=== PATIENT | female | born 1965 | race Caucasian/White ===

== ENCOUNTER 2016-04-28 12:19 | Observation (INO) | payer OTHER ==
[~2016-04-28] VITALS: Ht 154.9 cm; Wt 68.0 kg
[~2016-04-28 12:19] MED LIST: ASPI325T PO
[2016-04-28 12:24] VITALS: BP 132/83; PULSE 92; RESP 14; TEMP 98.5; O2SAT 98
--- NOTE | 2016-04-28 12:38 | PD ---
HPI Chief Complaint: Pain: Acute or Chronic Time Seen by Provider: 12:37 Travel History International Travel<30 days: No Contact w/Intl Traveler<30days: No Traveled to known affect area: No History of Present Illness HPI 50-year-old female with PMH of mitral valve prolapse, cardiogenic syncope, rheumatoid arthritis presents to the ED for evaluation a 2 day history of cramping left-sided posterior shoulder and neck pain. Patient states that the pain comes on suddenly, lasts approximately 1 minute before fading away. She states that the pain is accompanied by shortness of breath, diaphoresis and nausea. Last episode earlier this morning. Patient denies palpitations, chest pain, abdominal pain, dysuria. Patient has never smoked. Endorses strong family history of ME and sudden cardiac . Followed by Dr. Tellez. [facility] Past Medical History Hx Anticoagulant Therapy: Yes (ASPRIN) Arthritis: Yes Blood Disorders: No Heart Rhythm Problems: Yes Cancer: No Cardiovascular Problems: Yes (MVP) High Cholesterol: No Chemotherapy: No Chest Pain: Yes Congestive Heart Failure: No Cerebrovascular Accident: Yes Endocrine: No Gastrointestinal Disorders: No Genitourinary: No Hypertension: No Immune Disorder: Yes (Rheumatoid Arthritis, Poss Autoimmune Disorder) Implanted Vascular Access Dvce: No Musculoskeletal: Yes (Rheumatoid Arthritis) Neurologic: No Psychiatric: No Reproductive: No Respiratory: No Immunizations Current: Yes Myocardial Infarction: Yes Radiation Therapy: No ?: Not Past Surgical History Section: Yes Hysterectomy: Yes Tonsillectomy: Yes Other Surgery: Yes (5-6 Knee Sx, Hyster, Tonsillectomy, Breast Bx) Social History Alcohol Use: No Tobacco Use: No Substance Use: No Allergies-Medications (Allergen,Severity, Reaction): Coded Allergies: Penicillin (Verified Allergy, Severe, Anaphylaxis, 04/28/16) Vancomycin (Verified Allergy, Severe, Anaphylaxis, 04/28/16) Robitussin (Verified Allergy, Mild, HIVES, 04/28/16) Reported Meds & Prescriptions Reported Meds & Active Scripts Active No Active Prescriptions or Reported Medications Review of Systems Except as stated in HPI: all other systems reviewed are Neg Physical Exam Narrative GENERAL: Well-nourished, well-developed white female in no acute distress. SKIN: Warm and dry. No rashes noted. HEAD: Normocephalic. EYES: No scleral icterus. No injection or drainage. NECK: Supple, trachea midline. No JVD or lymphadenopathy. CARDIOVASCULAR: Regular rate and rhythm without murmurs, gallops, or rubs. 2+ DP and radial pulses bilaterally. RESPIRATORY: Breath sounds clear and equal bilaterally. No accessory muscle use. GASTROINTESTINAL: Abdomen soft, non-tender, nondistended. Active bowel sounds. MUSCULOSKELETAL: No cyanosis, or edema. Patient is observed to walk with a normal gait. BACK: Nontender without obvious deformity. No CVA tenderness. Data Data Last Documented VS Vital Signs Date Time Temp Pulse Resp B/P Pulse Ox O2 Delivery O2 Flow Rate FiO2 04/28/16 12:24 98.5 92 14 132/83 98 Orders Electrocardiogram (04/28/16 12:46) Basic Metabolic Panel (Bmp) (04/28/16 12:46) Ckmb (Isoenzyme) Profile (04/28/16 12:46) Complete Blood Count With Diff (04/28/16 12:46) Magnesium (Mg) (04/28/16 12:46) Prothrombin Time / Inr (Pt) (04/28/16 12:46) Act Partial Throm Time (Ptt) (04/28/16 12:46) Troponin I (04/28/16 12:46) Chest, Single Ap (04/28/16 12:46) Aspirin Chew (Aspirin Chew) (04/28/16 13:00) Sodium Chloride 0.9% Flush (Ns Flush) (04/28/16 13:00) Admit Order (Ed Use Only) (04/28/16 14:01) Labs Laboratory Tests Test 04/28/16 12:50 White Blood Count 3.3 TH/MM3 Red Blood Count 5.03 MIL/MM3 Hemoglobin 14.8 GM/DL Hematocrit 43.5 % Mean Corpuscular Volume 86.6 FL Mean Corpuscular Hemoglobin 29.5 PG Mean Corpuscular Hemoglobin 34.0 % Concent Red Cell Distribution Width 11.9 % Platelet Count 163 TH/MM3 Mean Platelet Volume 7.7 FL Neutrophils (%) (Auto) 60.7 % Lymphocytes (%) (Auto) 27.2 % Monocytes (%) (Auto) 10.6 % Eosinophils (%) (Auto) 0.9 % Basophils (%) (Auto) 0.6 % Neutrophils # (Auto) 2.0 TH/MM3 Lymphocytes # (Auto) 0.9 TH/MM3 Monocytes # (Auto) 0.3 TH/MM3 Eosinophils # (Auto) 0.0 TH/MM3 Basophils # (Auto) 0.0 TH/MM3 CBC Comment DIFF FINAL Differential Comment Prothrombin Time 11.2 SEC Prothromb Time International 1.0 RATIO Ratio Activated Partial 27.5 SEC Thromboplast Time Sodium Level 138 MEQ/L Potassium Level 3.2 MEQ/L Chloride Level 104 MEQ/L Carbon Dioxide Level 23.4 MEQ/L Anion Gap 11 MEQ/L Blood Urea Nitrogen 10 MG/DL Creatinine 0.89 MG/DL Estimat Glomerular Filtration 67 ML/MIN Rate Random Glucose 94 MG/DL Calcium Level 8.0 MG/DL Magnesium Level 2.3 MG/DL Total Creatine Kinase 62 U/L Troponin I LESS THAN 0.02 NG/ML MDM Medical Decision Making Medical Screen Exam Complete: Yes Emergency Medical Condition: Yes Interpretation(s) EKG rate 85, sinus rhythm. ID interval 156, QRS, 70 ms, QTc 386. No acute ischemic changes. Reviewed by Dr. Quintanilla. Similar to previous EKG 11/10/13. Differential Diagnosis Atypical chest pain versus muscle spasm versus GERD versus ACS versus other Narrative Course 50-year-old female with PMH of mitral valve prolapse, cardiogenic syncope, rheumatoid arthritis presents to the ED for evaluation a 2 day history of cramping left-sided posterior shoulder and neck pain. Patient states that the pain comes on suddenly, lasts approximately 1 minute before fading away. Pain is accompanied by shortness of breath, diaphoresis and nausea. Last episode earlier this morning. Patient denies palpitations, chest pain, abdominal pain, dysuria. Patient has never smoked. Endorses strong family history of ME and sudden cardiac . Followed by Dr. Tellez. Vitals reviewed. Physical exam reveals a nontoxic appearing white female in no acute distress. No rashes or tenderness to palpation over the left posterior neck and shoulder. Remaining physical exam is otherwise unremarkable. CBC: addresses or anemia. INR 1.0. Chemistry potassium 3.2. Calcium 8.0. Cardiac enzymes negative CXR: No acute disease EKG as above. Given the patient's increased risks as well as atypical chest pain, but her chest pain center for further evaluation. Please see chest pain center notes for disposition. Diagnosis Primary Impression: Atypical chest pain Scripts No Active Prescriptions or Reported Meds Chelsie Diez Apr 28, 2016 12:38
[2016-04-28] MEDS ORDERED: ASPIRIN 81 MG CHEW TAB PO ONE (13:00)
[2016-04-28] MEDS ORDERED: SODIUM CHLORIDE 0.9% FLUSH 5 ML FLUSH IVF PRN (13:00)
[2016-04-28 13:04] LABS: BASOPHIL % 0.6 % (0.0-2.0); EOSINOPHIL % 0.9 % (0.0-4.0); HEMATOCRIT 43.5 % (35.0-46.0); HEMO FLAGS DIFF FINAL; LYMPH % 27.2 % (9.0-44.0); LYMPHOCYTE # 0.9 TH/MM3 (1.0-4.8); MEAN CELL VOLUME 86.6 FL (80.0-100.0); MEAN CORPUSCULAR HEMOGLOBIN 29.5 PG (27.0-34.0); MONO % 10.6 % (0.0-8.0); NEUT % 60.7 % (16.0-70.0); PLATELET COUNT 163 TH/MM3 (150-450); RED BLOOD COUNT 5.03 MIL/MM3 (4.00-5.30); RED CELL DISTRIBUTION WIDTH 11.9 % (11.6-17.2); WHITE BLOOD COUNT 3.3 TH/MM3 (4.0-11.0)
[2016-04-28 13:16] LABS: CHLORIDE 104 MEQ/L (98-107); POTASSIUM 3.2 MEQ/L (3.5-5.1); SODIUM (NA) 138 MEQ/L (136-145)
[2016-04-28 13:19] LABS: ANION GAP 11 MEQ/L (5-15); BICARBONATE 23.4 MEQ/L (21.0-32.0); MAGNESIUM 2.3 MG/DL (1.5-2.5)
[2016-04-28 13:20] LABS: BLOOD UREA NITROGEN 10 MG/DL (7-18)
[2016-04-28 13:23] LABS: APTT (PATIENT) 27.5 SEC (24.3-30.1); GLOMERULAR FILTRATION RATE 67 ML/MIN (>89); PROTHROMBIN TIME - PATIENT 11.2 SEC (9.8-11.6)
[2016-04-28 13:33] LABS: CREATINE KINASE 62 U/L (26-192)
--- NOTE | 2016-04-28 13:37 | RADHPO ---
EXAM DATE/TIME: 04/28/2016 12:50 [facility] COMPARISON: No previous studies available for comparison. INDICATIONS : Chest pain off and on for two days. MEDICAL HISTORY : Mitral valve prolapse. SURGICAL HISTORY : None. ENCOUNTER: Initial ACUITY: 2 days PAIN SCORE: 9/10 LOCATION: posterior chest. FINDINGS: A single view of the chest demonstrates the lungs to be symmetrically aerated without evidence of mas s, infiltrate or effusion. The cardiomediastinal contours are unremarkable. Osseous structures are intact. CONCLUSION: No acute disease. Kali Jason MD on April 28, 2016 at 13:35 Board Certified Radiologist. This report was verified electronically.
[2016-04-28] MEDS ORDERED: CYCL1TAB29 PO (14:39)
--- NOTE | 2016-04-28 14:40 | HHI.DCPOC ---
Discharge Care Plan Diagnosis: (1) Atypical chest pain Goals to Promote Your Health * To prevent worsening of your condition and complications * To maintain your health at the optimal level Directions to Meet Your Goals Take your medications as prescribed Follow your dietary instruction Follow activity as directed Keep your appointments as scheduled Take your immunizations and boosters as scheduled If your symptoms worsen call your PCP, if no PCP go to Urgent Care Center or Emergency Room Smoking is Dangerous to Your Health. Avoid second hand smoke Call the 24-hour hour crisis hotline for domestic abuse at Lynne Arteaga MD Apr 28, 2016 14:40
[2016-04-28] MEDS ORDERED: SODIUM CHLOR 0.9% 1000 ML INJ 1,000 ML IV ONE (14:45)
--- NOTE | 2016-04-28 14:52 | PD.CONS ---
[facility] Requested By er MD Quintanilla Reason for Consult atypical CP Primary Care Physician Scott Urena MD Diagnoses: History of Present Illness Patient is a 50-year-old female who is evaluated in the emergency room at the request of the ER physician due to atypical left scapular discomfort which has been intermittent for the last 3 days. Patient notes no aggravating or relieving factors for this vague discomfort. It is associated with sweating and nausea. She has not eaten in the last 2 days which is unusual because normally she has a very good appetite. The nausea has not caused any vomiting. Patient has reported increasing psychosocial stressors and fatigue symptoms. In the emergency room her EKG initially is normal and her troponin is normal. Patient does have a history of mitral valve prolapse and rheumatic fever as child. She is under the care of her venetian blind tape cutter who has outpatient cardiac stress testing pending. Previous evaluations have been nonspecific per patient' s history. At this time patient denies any discomfort. She was driving today and felt the discomfort and therefore came to the emergency room however the discomfort went away spontaneously. At this point patient is very comfortable without any complaints. I did speak with the patient regarding any recent trauma musculoskeletal with which she denies. The pain is not reproducible. Patient would like to follow-up with her primary venetian blind tape cutter to continue medical evaluation of this atypical chest discomfort Review of Systems Constitutional: COMPLAINS OF: Diaphoretic episodes, Change in appetite Endocrine: DENIES: Abnorml menstrual pattern, Heat/cold intolerance, Polydipsia , Polyuria, Polyphagia Eyes: DENIES: Blurred vision, Diplopia, Eye inflammation, Eye pain, Vision loss , Photosensitivity, Double Vision Ears, nose, mouth, throat: DENIES: Tinnitus, Hearing loss, Vertigo, Nasal discharge, Oral lesions, Throat pain, Hoarseness, Ear Pain, Running Nose, Epistaxis, Sinus Pain, Toothache, Odynophagia Respiratory: DENIES: Apneas, Cough, Snoring, Wheezing, Hemoptysis, Sputum production, Shortness of breath Cardiovascular: DENIES: Chest pain, Palpitations, Syncope, Dyspnea on Exertion , PND, Lower Extremity Edema, Orthopnea, Claudication Gastrointestinal: DENIES: Abdominal pain, Black stools, Bloody stools, Constipation, Diarrhea, Nausea, Vomiting, Difficulty Swallowing, Anorexia Genitourinary: DENIES: Abnormal vaginal bleeding, Dysmenorrhea, Dyspareunia, Sexual dysfunction, Urinary frequency, Urinary incontinence, Urgency, Hematuria , Dysuria, Nocturia, Vaginal discharge Musculoskeletal: DENIES: Joint pain, Muscle aches, Stiffness, Joint Swelling, Back pain, Neck pain Integumentary: DENIES: Abnormal pigmentation, Pruritus, Rash, Nail changes, Breast masses, Breast skin changes, Nipple discharge Hematologic/lymphatic: DENIES: Bruising, Lymphadenopathy Immunologic/allergic: DENIES: Eczema, Urticaria Neurologic: DENIES: Abnormal gait, Headache, Localized weakness, Paresthesias, Seizures, Speech Problems, Tremor, Poor Balance Psychiatric: DENIES: Anxiety, Confusion, Mood changes, Depression, Hallucinations, Agitation, Suicidal Ideation, Homicidal Ideation, Delusions Past Family Social History Allergies: Coded Allergies: Penicillin (Verified Allergy, Severe, Anaphylaxis, 04/28/16) Vancomycin (Verified Allergy, Severe, Anaphylaxis, 04/28/16) Robitussin (Verified Allergy, Mild, HIVES, 04/28/16) Past Medical History Mitral valve prolapse Rheumatic fever TIA (patient denies) Past Surgical History Hysterectomy Tonsillectomy Left knee surgery 6 Reported Medications No home medications Active Ordered Medications Medications reviewed in the medical record Family History Brother had a ruptured vascular issue and Mother is healthy Social History No tobacco, occasional alcohol, unemployed no illicit drug use No recent travel Physical Exam Vital Signs Vital Signs Date Time Temp Pulse Resp B/P Pulse Ox O2 Delivery O2 Flow Rate FiO2 04/28/16 12:24 98.5 92 14 132/83 98 Physical Exam GENERAL: This is a well-nourished, well-developed patient, in no apparent distress. SKIN: No rashes, ecchymoses or lesions. Cool and dry. HEAD: Atraumatic. Normocephalic. No temporal or scalp tenderness. EYES: Pupils equal round and reactive. Extraocular motions intact. No scleral icterus. No injection or drainage. ENT: Nose without bleeding, purulent drainage or septal hematoma. Throat without erythema, tonsillar hypertrophy or exudate. Uvula midline. Airway patent. NECK: Trachea midline. No JVD or lymphadenopathy. Supple, nontender, no meningeal signs. CARDIOVASCULAR: Regular rate and rhythm without murmurs, gallops, or rubs. RESPIRATORY: Clear to auscultation. Breath sounds equal bilaterally. No wheezes , rales, or rhonchi. GASTROINTESTINAL: Abdomen soft, non-tender, nondistended. No hepato-splenomegaly , or palpable masses. No guarding. MUSCULOSKELETAL: Extremities without clubbing, cyanosis, or edema. No joint tenderness, effusion, or edema noted. No calf tenderness. Negative Homans sign bilaterally. NEUROLOGICAL: Awake and alert. Cranial nerves II through XII intact. Motor and sensory grossly within normal limits. Five out of 5 muscle strength in all muscle groups. Normal speech. Laboratory Laboratory Tests Test 04/28/16 12:50 White Blood Count 3.3 Red Blood Count 5.03 Hemoglobin 14.8 Hematocrit 43.5 Mean Corpuscular Volume 86.6 Mean Corpuscular Hemoglobin 29.5 Mean Corpuscular Hemoglobin 34.0 Concent Red Cell Distribution Width 11.9 Platelet Count 163 Mean Platelet Volume 7.7 Neutrophils (%) (Auto) 60.7 Lymphocytes (%) (Auto) 27.2 Monocytes (%) (Auto) 10.6 Eosinophils (%) (Auto) 0.9 Basophils (%) (Auto) 0.6 Neutrophils # (Auto) 2.0 Lymphocytes # (Auto) 0.9 Monocytes # (Auto) 0.3 Eosinophils # (Auto) 0.0 Basophils # (Auto) 0.0 CBC Comment DIFF FINAL Differential Comment Prothrombin Time 11.2 Prothromb Time International 1.0 Ratio Activated Partial 27.5 Thromboplast Time Sodium Level 138 Potassium Level 3.2 Chloride Level 104 Carbon Dioxide Level 23.4 Anion Gap 11 Blood Urea Nitrogen 10 Creatinine 0.89 Estimat Glomerular Filtration 67 Rate Random Glucose 94 Calcium Level 8.0 Magnesium Level 2.3 Total Creatine Kinase 62 Troponin I LESS THAN 0.02 Result Diagram: 04/28/16 1250 04/28/16 1250 Imaging GENERAL: This is a well-nourished, well-developed patient, in no apparent distress. CARDIOVASCULAR: Regular rate and rhythm without murmurs, gallops, or rubs. RESPIRATORY: Clear to auscultation. Breath sounds equal bilaterally. No wheezes , rales, or rhonchi. GASTROINTESTINAL: Abdomen soft, non-tender, nondistended. Normal active bowel sounds MUSCULOSKELETAL: Extremities without clubbing, cyanosis, or edema. NEURO: Alert & Oriented x4 to person, place, time, situation. Moves all ext x4 Assessment and Plan Problem List: (1) Atypical chest pain ICD Code: R07.89 Status: Acute Plan: Likely musculoskeletal Patient's leukopenia and monocytosis may be related to viral syndrome Will continue with outpatient plans for stress testing per her [employer]ian blind tape cutter Continue IV fluids Flexeril as needed for discomfort (2) Hypokalemia ICD Code: E87.6 Status: Acute Plan: replace Assessment and Plan Discharge home Activity unrestricted Diet regular Lynne Arteaga MD Apr 28, 2016 14:52
[2016-04-28] MEDS ORDERED: POTASSIUM CHLORIDE 10 MEQ CONTROLLED RELEASE TAB PO ONE (15:00)
[2016-04-28 16:05] VITALS: BP 106/63; PULSE 89; RESP 16; O2SAT 99
--- NOTE | 2016-04-30 07:17 | EKG ---
Date Performed: 04/28/2016 Time Performed: 12:54:28 PTAGE: 50 years EKG: Sinus rhythm Generalized low voltage Poor R-wave progression, cannot exclude anteroseptal myocardial infarction o f undetermined age vs normal variant Abnormal ECG Compared to PREVIOUS TRACING , no significant change is noted. PREVIOUS TRACIN11/10/2013 12.15 DOCTOR: Nba Trottre Interpretating Date/Time 04/30/2016 07:16:47
== END 2016-04-28 16:26 | disposition home or self-care (01) ==
LOC: PHEFT 12:19 → PHEDA 14:03
PROVIDERS: ADMIT Hospitalist; ATTEND Hospitalist
DX: R07.89 Other chest pain (principal); E87.6 Hypokalemia; I34.1 Nonrheumatic mitral (valve) prolapse; M06.9 Rheumatoid arthritis, unspecified; Z82.49 Family history of ischemic heart disease and other diseases of the circulatory system; Z86.73 Personal history of transient ischemic attack (TIA), and cerebral infarction without residual deficits; Z79.82 Long term (current) use of aspirin
CPT/HCPCS: 71010; 80048; 82550; 83735; 84443; 84484; 85025; 85610; 85730; 93005; 99285; G0378; J7030

== ENCOUNTER → 2016-07-12 | Day surgery (SDC) | payer OTHER ==
[~2016-07-12] MED LIST changes: -ASPI325T PO; +BUPIVACAINE/EPINEPHRINE 0.25% 50 ML VIAL ONE; +CLINDAMYCIN PHOS 600 MG/4 ML VIAL ONE; +CYCL1TAB29 PO; +KETOROLAC TROMETHAMINE 30 MG/ML (IVP) VIAL IV PUSH ONE; +LACTATED RINGER'S 1000 ML INJ 1,000 ML ONE; +MEPERIDINE HCL 50 MG/ML VIAL ONE; +MIDAZOLAM HCL 2 MG/2 ML VIAL ONE; +ONDANSETRON HCL 4 MG/2 ML VIAL IV PUSH ONE; +PROPOFOL 200 MG/20 ML AMP IV ONE; +SODIUM CHLORIDE 0.9% 100 ML MINIBAG IV ONE; +TRIAMCINOLONE ACETONIDE 40 MG/ML VIAL ONE; +oxyCODONE/ACETAMINOPHEN 5 MG/325 MG TAB ONE
--- NOTE | 2016-07-12 12:33 | TN ---
cc: ALYSSA KAT M.D. DATE OF SURGERY 07/12/2016 PREOPERATIVE DIAGNOSIS Left knee pain and mechanical symptoms without clear evidence of internal derangement on MRI. POSTOPERATIVE DIAGNOSES 1. 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 2. Previous anterior cruciate ligament reconstruction with significant stretch injury and partial rupture. 3. Partial detachment medical meniscus from medial tibial palteau. PROCEDURE PERFORMED 1. Left knee arthroscopy with chondroplasty of the patella, medial femoral condyle and lateral tibial plateau. 2. Left knee augmentation anterior cruciate ligament with thermal treatment. 3. Abrasion/decorication medial tibial plateau under area of meniscal detachment SURGEON [facility] [place] AN[facility]HES[facility] General via laryngeal mask augmented by local infiltration. BLOOD LOSS Minimal. FLUID REPLACEMENT 500 cc crystalloid. TOURNIQUET TIME 30 minutes at 300 mmHg. COMPLICATIONS There were no intraoperative complications. COUNTS All counts were correct. IMPLANTS There were no implants utilized. INDICATIONS FOR THE PROCEDURE Mrs. Higgins is a 50-year-old woman who has undergone multiple left knee procedures in the past, the most recent of which a little over a year ago, which failed to provide her with significant improvement of her symptoms. She reports that she has continued to experience problems with mechanical-like symptoms as well as the sensation of mal-tracking and continues to have a great deal of episodic severe pain of the knee. She also had a very distinct sensation of feeling unstable somewhat similar to how she felt when her ACL was originally injured. Post-arthroscopy MRI of the knee did not clearly delineate any obvious intra-articular pathology other than some mild arthritis. As a result of her quite persistent symptoms and further evaluation by myself and second surgical opinion by Dr. Cope, we went ahead and decided to do a diagnostic knee arthroscopy to see if there was anything further found in the knee to account for her ongoing symptoms. She was aware of the risks of the procedure including bleeding, infection, thromboembolic complications, lack of relief, worsening of her pain and that it was unclear what we would find and it may even be unclear what would be necessary to be done, but she consented to do whatever was necessary in order to improve her discomfort. DESCRIPTION OF PROCEDURE After the patient properly identified in the holding area, she correctly marked her left knee for surgery and I had initialed it as well. She was given 600 mg of clindamycin as prophylactic antibiotic due to her PENICILLIN ALLERGY and then she was placed under general laryngeal mask anesthetic by Dr. Schultz. I went ahead and applied a well-padded thigh-high tourniquet to the left knee and then we prepped her and draped her with alcohol and Hibiclens from the toes all the way up to the level of the tourniquet. She was then draped in the normal standard fashion including the use of impervious stockinette from the foot to the midcalf level. At this time a brief time-out was held confirming the left leg was the appropriate surgical site. The team was in agreement and the case was now begun. Standard anteromedial and anterolateral joint line portals were established after the leg was exsanguinated and the tourniquet was raised to 300 mmHg. A small effusion was evacuated, in-flow was initiated and a survey of the joint was as follows: The suprapatellar pouch showed no evidence of any loose bodies or significant synovitis. The patellofemoral joint did show a central hinged area of chondromalacia that was quite thick, almost the level of Grade III-A that appeared to be hinged on the undersurface of the patella. This could have been a very classic chondral lesion responsible for intermittent mechanical symptoms in the knee that may not necessarily be easily identifiable on MRI. It certainly may account for the sensation of instability and mechanical symptoms that were more experienced anterior. I went ahead and performed a chondroplasty of the patella to eliminate the hinged, unstable fragments and there was not bare exposed bone deep to it. There was no evidence of any significant pathology on the corresponding trochlear groove side. At this time the medial gutter was explored. No loose bodies were identified. I went ahead and now entered the medial compartment. There was some diffuse Grade II-A and II-B chondromalacia of the medial femoral condyle which was gently debrided with an oscillating shaver and there were quite minimal changes on the tibial side. The meniscus did show evidence of previous partial meniscectomy, but no evidence of any new acute tear was identified. The only pathology that was present, other than the underlying chondral thinning, was very subtle detachment of the anteromedial corner of the meniscus from the tibial plateau. There was somewhat of a variation of how well adherent the edge of the meniscus as to the proximal tibia but in this case it did appear to be slightly looser at least in this one segment. No corresponding large displaced new anterior horn tear was seen nor was there any evidence of significant midbody or posterior horn tear. Prior partial meniscectomy did not make it so that the meniscal rim was significantly smaller posteriorly. The meniscus rim was fully probed and was intact and was stable, would not sublux into the joint. I elected to perform a limited abrasion/ decortication with the shaver at this site to encourage reattachment . The intercondylar notch was now explored. There was evidence of her previous ACL reconstruction but it appeared to be even further attenuated and more thinned out than had ever been noticed previously. There was a 2+ anterior drawer at least, perhaps even a higher level of laxity which was difficult to measure due to the actual measurement of it intraoperatively. I went ahead and took a video at this point in time to demonstrate the degree of laxity and there was clearly more significant anterior translation than would have been anticipated following a successful ACL reconstruction previously. At this time I went ahead and debrided some of the hypertrophic synovial tissue that was actually impinging into the notch area and will return to the ACL issue further in the operative report. At this time the lateral compartment was now entered. There was evidence of Grade II-B chondromalacia of the lateral tibial plateau to which gentle chondroplasty was performed with a shaver. Minimal changes were noted on the femoral side. The lateral meniscus did show some evidence of previous partial lateral meniscectomy, but no evidence of new acute tears appreciated and I fully probed the lateral meniscus and it would not sublux into the joint at all. The lateral gutter was explored. No loose bodies were identified. At this time the intercondylar notch was re-explored one further time. I felt that, based upon her increased translational displacement from laxity of her ACL, that it was in her best interest and she would certainly be interested in anything being done possible to help improve her symptoms by performing a thermal shrinkage to her previous ACL reconstruction. I went ahead and used to the ArthroCare wand on a #2 setting under coag and this produced no obvious tissue destruction but as soon as the probe was applied, immediate shrinking of the soft tissues were appreciated immediately. The graft after being treated 10-15 times became much more tubular as well as rigid. A secondary video was obtained which showed significant improvement of her anterior-posterior stability following the treatment. Whether or not this is effective for long-term use remains the ultimate question in the thermal shrinkage literature but clincally it was dramatically more stable and very effectively augmented her ACL function back to near normal. We will follow this closely post op. At this time the knee was thoroughly irrigated and suctioned decompressed several times. I inspected all compartments one time further and found no other new pathology than had been identified previously. The instruments were removed. After the knee was then suctioned decompressed, the portals were closed with 3-0 nylon simple sutures and then 30 cc of 0.25% Marcaine with epinephrine then infiltrated subcutaneously as well as intraarticularly for postop pain relief. The wounds were then dressed with Xeroform, 4x4s, ABD and an Phani wrap. The tourniquet was let down. There was brisk return of capillary refill. She was then awoken from anesthesia and taken to Recovery in stable condition. Appropriate postoperative orders have been written. Alyssa Kat MD Electronically Signed MD DEV Garcia/ANKUR /11:18 AM /12:05 PM MTDD
== END | disposition home or self-care (01) ==
LOC: ESDC 08:31
PROVIDERS: ATTEND Orthopaedic Surgery Sports Medicine
DX: M22.42 Chondromalacia patellae, left knee (principal); S83.512A Sprain of anterior cruciate ligament of left knee, initial encounter
CPT/HCPCS: 01400; 29877; 29999; J1885; J2250; J2405; J3010; J7120; J2175; J3301

== ENCOUNTER 2017-08-01 02:02 | Emergency (ER) | payer OTHER ==
[~2017-08-01] VITALS: Ht 162.6 cm; Wt 75.0 kg
[~2017-08-01 02:02] MED LIST changes: -BUPIVACAINE/EPINEPHRINE 0.25% 50 ML VIAL ONE; -CLINDAMYCIN PHOS 600 MG/4 ML VIAL ONE; +CYCL10TA PO; -CYCL1TAB29 PO; -KETOROLAC TROMETHAMINE 30 MG/ML (IVP) VIAL IV PUSH ONE; -LACTATED RINGER'S 1000 ML INJ 1,000 ML ONE; -MEPERIDINE HCL 50 MG/ML VIAL ONE; -MIDAZOLAM HCL 2 MG/2 ML VIAL ONE; -ONDANSETRON HCL 4 MG/2 ML VIAL IV PUSH ONE; -PROPOFOL 200 MG/20 ML AMP IV ONE; -SODIUM CHLORIDE 0.9% 100 ML MINIBAG IV ONE; -TRIAMCINOLONE ACETONIDE 40 MG/ML VIAL ONE; -oxyCODONE/ACETAMINOPHEN 5 MG/325 MG TAB ONE
[2017-08-01 02:06] VITALS: BP 143/83; PULSE 104; RESP 20; TEMP 99.5
[2017-08-01] MEDS ORDERED: NITR1SUB3 SL (02:19)
[2017-08-01] MEDS ORDERED: ASPI81CH6 CHEW (02:19)
[2017-08-01 02:30] VITALS: BP 136/70; PULSE 98; RESP 18; O2SAT 100
[2017-08-01 02:42] LABS: BASOPHIL # 0.1 TH/MM3 (0-0.2); BASOPHIL % 0.9 % (0.0-2.0); EOSINOPHIL % 0.4 % (0.0-4.0); HEMATOCRIT 39.8 % (35.0-46.0); HEMOGLOBIN 13.6 GM/DL (11.6-15.3); LYMPH % 15.3 % (9.0-44.0); LYMPHOCYTE # 1.4 TH/MM3 (1.0-4.8); MEAN CELL VOLUME 86.9 FL (80.0-100.0); MEAN CORPUSCULAR HEMOGLOBIN 29.8 PG (27.0-34.0); MEAN CORPUSCULAR HGB CONC 34.3 % (32.0-36.0); MEAN PLATELET VOLUME 8.5 FL (7.0-11.0); MONO % 7.7 % (0.0-8.0); MONOCYTE # 0.7 TH/MM3 (0-0.9); NEUT % 75.7 % (16.0-70.0); PLATELET COUNT 252 TH/MM3 (150-450); RED BLOOD COUNT 4.58 MIL/MM3 (4.00-5.30); RED CELL DISTRIBUTION WIDTH 12.3 % (11.6-17.2); WHITE BLOOD COUNT 9.2 TH/MM3 (4.0-11.0)
[2017-08-01] MEDS ORDERED: SODIUM CHLOR 0.9% 1000 ML INJ 1,000 ML IV SCH (02:50)
--- NOTE | 2017-08-01 02:54 | RADRPT ---
EXAM DATE: 08/01/2017 2:45 AM EDT AGE/SEX: 51 years / Female INDICATIONS: Right sided chest pain for 24 hours CLINICAL DATA: This is the patient's initial encounter. Patient reports that signs and symptoms have been present for 1 day and indicates a pain score of 10/10. MEDICAL/SURGICAL HISTORY: . Mitral valve prolapse. None. COMPARISON: [facility], CHEST SINGLE AP, 04/28/2016. . FINDINGS: Single AP view the chest. Lung volumes are low. Mild right lower lung zone opacity may represent atel ectasis or early consolidation. No evidence of pleural effusion or pneumothorax. Cardiomediastinal si lhouette within normal limits. CONCLUSION: Low lung volumes with patchy right lung base opacity. Electronically signed by: Dread Greene MD 08/01/2017 2:53 AM EDT
[2017-08-01 02:55] LABS: CHLORIDE 106 MEQ/L (98-107); SODIUM (NA) 141 MEQ/L (136-145)
--- NOTE | 2017-08-01 02:56 | PD ---
HPI Chief Complaint: Pain: Acute or Chronic Time Seen by Provider: 02:50 Travel History International Travel<30 days: No Contact w/Intl Traveler<30days: No Traveled to known affect area: No History of Present Illness HPI The patient is a 51-year-old female that Saturday morning began feeling a tightness around where her bra is in the back. The pain vacillated wavering up from a 2/10 to a 9/10. She has never had this problem before. The pain goes from the back down to her legs in the back. She states she is not having any chest pain or shortness of breath or cough or fever. She does have occasional nausea. She denies any abdominal pain. She does not smoke. She states for the past 3 days she has had sweating and feeling like she is going through the menopause. PFSH Past Medical History Hx Anticoagulant Therapy: Yes (ASPRIN) Arthritis: Yes Autoimmune Disease: Yes (RHEUMATIC FEVER) Blood Disorders: No Heart Rhythm Problems: Yes Cancer: No Cardiovascular Problems: Yes (EKG ABNORMALITIES, NH, TACHYCARDIA, MVP/TVP) High Cholesterol: No Chemotherapy: No Chest Pain: Yes Congestive Heart Failure: No Cerebrovascular Accident: Yes Patient Takes Glucophage: No Endocrine: No Gastrointestinal Disorders: No Genitourinary: No Hypertension: No Immune Disorder: Yes (RHEUMATIC FEVER, Poss Autoimmune Disorder) Implanted Vascular Access Dvce: No Musculoskeletal: Yes (Rheumatoid Arthritis) Neurologic: No Psychiatric: No Reproductive: No Respiratory: No Immunizations Current: Yes Myocardial Infarction: Yes Radiation Therapy: No Tetanus Vaccination: Unknown Influenza Vaccination: No ?: Not Past Surgical History Section: Yes Gynecologic Surgery: Yes Hysterectomy: Yes Tonsillectomy: Yes Other Surgery: Yes (5-6 Knee Sx, Hyster, Tonsillectomy, Breast Bx) Social History Alcohol Use: No Tobacco Use: No Substance Use: No Allergies-Medications (Allergen,Severity, Reaction): Coded Allergies: penicillin G (Unverified Allergy, Severe, Anaphylaxis, 10/02/16) vancomycin (Unverified Allergy, Severe, Anaphylaxis, 10/02/16) guaifenesin (Unverified Allergy, Mild, HIVES, 10/02/16) Reported Meds & Prescriptions Reported Meds & Active Scripts Active Zithromax (Azithromycin) 500 Mg Tab 500 Mg PO DAILY 5 Days Reported Nitroglycerin SL (Nitroglycerin) 0.4 Mg Subl 0.4 Mg SL DIRECTED PRN ONE TABLET UNDER THE TONGUE NEEDED FOR CHEST PAIN, MAY REPEAT EVERY FIVE MINUTES FOR A TOTAL OF 3 DOSES OR CALL 911 IF NO RELIEF Aspirin Low Dose (Aspirin) 81 Mg Chew 81 Mg CHEW DAILY Review of Systems Except as stated in HPI: all other systems reviewed are Neg Physical Exam Narrative GENERAL: The patient is alert, oriented 3 in moderate to severe distress with her back pain. Her vital signs show temperature 99.5 with blood pressure 123/ 83 and heart rate 104. SKIN: Focused skin assessment warm/dry. HEAD: Atraumatic. Normocephalic. EYES: Pupils equal and round. No scleral icterus. No injection or drainage. ENT: No nasal bleeding or discharge. Mucous membranes pink and moist. NECK: Trachea midline. No JVD. CARDIOVASCULAR: Regular rate and rhythm. No murmur appreciated. RESPIRATORY: No accessory muscle use. Clear to auscultation. Breath sounds equal bilaterally. GASTROINTESTINAL: Abdomen soft, non-tender, nondistended. Hepatic and splenic margins not palpable. MUSCULOSKELETAL: No obvious deformities. No clubbing. No cyanosis. No edema. I cannot reproduce the patient's pain by pressing on the back where she perceives her pain. NEUROLOGICAL: Awake and alert. No obvious cranial nerve deficits. Motor grossly within normal limits. Normal speech. PSYCHIATRIC: Appropriate mood and affect; insight and judgment normal. Data Data Last Documented VS Vital Signs Date Time Temp Pulse Resp B/P (MAP) Pulse Ox O2 Delivery O2 Flow Rate FiO2 08/01/17 03:18 90 18 111/77 (88) 98 Room Air 08/01/17 02:06 99.5 Orders Orders Electrocardiogram (08/01/17 02:24) Complete Blood Count With Diff (08/01/17 02:24) Basic Metabolic Panel (Bmp) (08/01/17 02:24) Ckmb (Isoenzyme) Profile (08/01/17 02:24) Troponin I (08/01/17 02:24) Chest, Single Ap (08/01/17 02:24) Iv Access Insert/Monitor (08/01/17 02:24) Ecg Monitoring (08/01/17 02:24) Oxygen Administration (08/01/17 02:24) Oximetry (08/01/17 02:24) Comprehensive Metabolic Panel (08/01/17 02:50) Urinalysis - C+S If Indicated (08/01/17 02:50) Morphine Inj (Morphine Inj) (08/01/17 03:00) Ondansetron Inj (Zofran Inj) (08/01/17 03:00) Sodium Chlor 0.9% 1000 Ml Inj (Ns 1000 M (08/01/17 02:50) Sodium Chloride 0.9% Flush (Ns Flush) (08/01/17 03:00) Electrocardiogram (08/01/17 02:50) Ketorolac Inj (Toradol Inj) (08/01/17 03:00) Orphenadrine Inj (Norflex Inj) (08/01/17 03:00) Azithromycin (Zithromax) (08/01/17 04:00) Labs Laboratory Tests Test 08/01/17 02:20 08/01/17 03:21 White Blood Count 9.2 TH/MM3 Red Blood Count 4.58 MIL/MM3 Hemoglobin 13.6 GM/DL Hematocrit 39.8 % Mean Corpuscular Volume 86.9 FL Mean Corpuscular Hemoglobin 29.8 PG Mean Corpuscular Hemoglobin Concent 34.3 % Red Cell Distribution Width 12.3 % Platelet Count 252 TH/MM3 Mean Platelet Volume 8.5 FL Neutrophils (%) (Auto) 75.7 % Lymphocytes (%) (Auto) 15.3 % Monocytes (%) (Auto) 7.7 % Eosinophils (%) (Auto) 0.4 % Basophils (%) (Auto) 0.9 % Neutrophils # (Auto) 7.0 TH/MM3 Lymphocytes # (Auto) 1.4 TH/MM3 Monocytes # (Auto) 0.7 TH/MM3 Eosinophils # (Auto) 0.0 TH/MM3 Basophils # (Auto) 0.1 TH/MM3 CBC Comment DIFF FINAL Differential Comment Blood Urea Nitrogen 17 MG/DL Creatinine 0.86 MG/DL Random Glucose 112 MG/DL Calcium Level 8.0 MG/DL Sodium Level 141 MEQ/L Potassium Level 3.8 MEQ/L Chloride Level 106 MEQ/L Carbon Dioxide Level 26.3 MEQ/L Anion Gap 9 MEQ/L Estimat Glomerular Filtration Rate 70 ML/MIN Total Creatine Kinase 28 U/L Troponin I LESS THAN 0.02 NG/ML Urine Color YELLOW Urine Turbidity CLEAR Urine pH 6.0 Urine Specific [place] 1.025 Urine Protein NEG mg/dL Urine Glucose (UA) NEG mg/dL Urine Ketones NEG mg/dL Urine Occult Blood TRACE Urine Nitrite NEG Urine Bilirubin NEG Urine Urobilinogen 0.2 MG/DL Urine Leukocyte Esterase NEG Urine WBC 0-2 /hpf Urine Squamous Epithelial Cells 0-5 /hpf Microscopic Urinalysis Comment CULT NOT INDICATED MDM Medical Decision Making Medical Screen Exam Complete: Yes Emergency Medical Condition: Yes Medical Record Reviewed: Yes Interpretation(s) The CBC is normal. The basic metabolic profile is normal and the troponin I is normal. The urine is normal except for trace occult blood and specific gravity 1.025. The EKG shows sinus tachycardia with a rate of 102 but is otherwise normal. The chest x-ray shows low lung volumes with patchy right base opacity. Differential Diagnosis Pneumonia, pneumothorax, bronchitis, musculoskeletal pain Narrative Course The patient does have some findings on x-ray and she will be treated with Zithromax. This could be a pneumonia or could be simple atelectasis. She will also get ibuprofen and Zofran as well as the Zithromax. It is now almost 0400 and the patient does feel better and her pain has subsided to around a 3/10. Diagnosis Primary Impression: Atypical chest pain Additional Impression: Right lower lobe pneumonia Additional Instructions: Follow-up this week with your primary care physician. Take the Motrin regularly , 1 tablet 3 times daily to develop high levels of anti-inflammatory medication. Zofran as every 6 hours as needed for nausea. The antibiotic, Zithromax is 1 tablet daily for 5 days. Med/Other Pt SpecificInfo: Prescription(s) given Scripts Ondansetron (Zofran) 4 Mg Tab 4 MG PO Q6HR Y for NAUSEA OR VOMITING, #20 TAB 0 Refills Prov: Blayne Hooker MD 08/01/17 Ibuprofen (Ibuprofen) 600 Mg Tab 600 MG PO TID, #30 TAB 0 Refills Prov: Blayne Hooker MD 08/01/17 Azithromycin (Zithromax) 500 Mg Tab 500 MG PO DAILY for Infection for 5 Days, #5 TAB 0 Refills Prov: Blayne Hooker MD 08/01/17 Disposition: 01 DISCHARGE HOME Condition: Stable Blayne Hooker MD Aug 01, 2017 02:56
[2017-08-01 02:58] LABS: BICARBONATE 26.3 MEQ/L (21.0-32.0); BLOOD UREA NITROGEN 17 MG/DL (7-18); GLUCOSE,RANDOM 112 MG/DL (74-106)
[2017-08-01] MEDS ORDERED: SODIUM CHLORIDE 0.9% FLUSH 10 ML FLUSH IV FLUSH PRN (03:00)
[2017-08-01] MEDS ORDERED: ORPHENADRINE INJ 60 MG/2 ML AMP IM ONE (03:00)
[2017-08-01] MEDS ORDERED: MORPHINE SULFATE 4 MG/ML INJ IV PUSH ONE (03:00)
[2017-08-01] MEDS ORDERED: KETOROLAC TROMETHAMINE 30 MG/ML (IVP) VIAL IVP ONE (03:00)
[2017-08-01] MEDS ORDERED: ONDANSETRON HCL 4 MG/2 ML VIAL IVP ONE (03:00)
[2017-08-01 03:01] LABS: CREATININE 0.86 MG/DL (0.50-1.00); GLOMERULAR FILTRATION RATE 70 ML/MIN (>89)
[2017-08-01 03:06] LABS: TROPONIN I LESS THAN 0.02 NG/ML (0.02-0.05)
[2017-08-01 03:18] VITALS: BP 111/77; PULSE 90; RESP 18; O2SAT 98
[2017-08-01 03:30] LABS: BILIRUBIN, URINE NEG (NEG); BLOOD, URINE TRACE (NEG); GLUCOSE,URINE NEG (NEG); KETONE, URINE NEG (NEG); NITRITE,URINE NEG (NEG); URINE COLOR YELLOW (YELLW/STRAW); URINE LEUKOCYTE ESTERASE NEG (NEG)
[2017-08-01 03:40] LABS: WBC, URINE 0-2 /hpf (0-5)
[2017-08-01 03:41] LABS: SQUAMOUS EPITHELIAL CELL URINE 0-5 /hpf (0-5)
[2017-08-01] MEDS ORDERED: ZITH500T PO (03:50)
[2017-08-01] MEDS ORDERED: IBUP-232 PO (03:53)
[2017-08-01] MEDS ORDERED: ZOFR4TAB PO (03:53)
[2017-08-01] MEDS ORDERED: AZITHROMYCIN 250 MG TAB PO ONE (04:00)
[2017-08-01 04:02] VITALS: BP 110/75
--- NOTE | 2017-08-01 18:39 | EKG ---
Date Performed: 08/01/2017 Time Performed: 02:33:13 PTAGE: 51 years EKG: SINUS TACHYCARDIA ABNORMAL RHYTHM ECG PREVIOUS TRACING : 04/28/2016 12.54 Since the previous tracing, no significant change noted DOCTOR: Sol Mccollum Interpretating Date/Time 08/01/2017 18:37:56
== END 2017-08-01 04:07 | disposition home or self-care (01) ==
LOC: PHED 02:02
DX: R07.89 Other chest pain (principal); J18.9 Pneumonia, unspecified organism; R94.31 Abnormal electrocardiogram [ECG] [EKG]; M19.90 Unspecified osteoarthritis, unspecified site; I25.2 Old myocardial infarction; I34.1 Nonrheumatic mitral (valve) prolapse; Z86.73 Personal history of transient ischemic attack (TIA), and cerebral infarction without residual deficits; M06.9 Rheumatoid arthritis, unspecified
CPT/HCPCS: 71045; 80048; 81001; 82550; 84484; 85025; 93005; 96361; 96372; 96374; 96375; 99285; J1885; J2270; J2360; J2405; J7030